=== PATIENT | female | born 1980 | race Caucasian/White ===

== ENCOUNTER 2020-02-29 11:32 | Emergency (ER) | payer MEDICAID ==
[~2020-02-29] VITALS: Ht 165.1 cm; Wt 69.5 kg
[2020-02-29] MEDS ORDERED: HYDROmorphone 2 MG/ML, 1ML ONE ×3 (11:58→15:12)
[2020-02-29] MEDS ORDERED: HYDROmorphone 1 MG/ML, 1ML INJ IM ONE ×2 (12:00→15:30)
[2020-02-29] MEDS ORDERED: METHOCARBAMOL 1,000 MG in DEXTROSE 5% 100 ML IV ONE (12:00)
--- NOTE | 2020-02-29 12:00 | NUR ---
PT TO ROOM 27 PER PEDIS. PT VERY TEARY EYED DUE TO SEVERE PAIN IN LOWER BACK. PT INFORMS MD THAT SHE HAS HAD SURGERY ON HER LOWER SPINE 4 YEARS AGO, AND 4 WEEKS AGO PATIENT COUGHED SO HARD SHE FELT A "POP", AND HAS HAD SEVERE PAIN SINCE. PT HAS BEEN TO THE ED IN [facility], BUT THEY DO NOT HAVE THE ABILITY TO PERFORM AN MRI. PT DID TALK TO A SPINE DOCTOR, WHO RECOMMENDED SHE COME TO THE ED TO HAVE THE MRI. MD PLACES ORDERS. RN INSERTS IV WITHOUT DIFF. AWAITING MEDICATION FROM PHARMACY. IM DILAUDID GIVEN, LAB DRAWN. PT PLACED ON MONITOR, GIVEN WARM BLANKET, AND CALL LIGHT GIVEN WITH INSTRUCTIONS. PT SETTLES AND BEGINS TO PRAISE THE HELP SHE IS RECEIVING AT THIS TIME. PLAN IS TO HAVE AN MRI TO CHECK HER SPINE BUT AFTER THE MUSCLE RELAXER HAS HAD TIME TO WORK SO PATIENT CAN LAY DOWN FOR THE TEST. WILL CONTINUE TO MONITOR.
--- NOTE | 2020-02-29 12:08 | NUR ---
TASK RN NOTE: PT MEDICATED PER EMAR WITH IM DILAUDID. PT TOLERATED WELL. SPO2 MONITOR IN PLACE. PRIMARY RN CHARLENE AT BEDSIDE.
[2020-02-29 12:19] LABS: BASOPHILS # (AUTO) 0.04 x10^3/uL (0-0.1); BASOPHILS % (AUTO) 1 % (0-1); EOSINOPHILS # (AUTO) 0.21 x10^3/uL (0-0.4); EOSINOPHILS % (AUTO) 3 % (1-7); LYMPHOCYTES % (AUTO) 29 % (22-44); MD NO; MEAN CORPUSCULAR HEMOGLOBIN 31.7 pg (27.0-34.8); MEAN CORPUSCULAR HGB CONC 33.4 g/dL (32.4-35.8); MEAN CORPUSCULAR VOLUME 94.9 fL (80-100); MEAN PLATELET VOLUME 8.7 fL (7.4-10.4); MONOCYTES # (AUTO) 0.45 x10^3/uL (0.2-0.8); MONOCYTES % (AUTO) 7 % (2-9); NEUTROPHILS # (AUTO) 4.14 x10^3/uL (1.8-6.8); NEUTROPHILS % (AUTO) 61 % (42-75); PLATELET COUNT 210 x10^3/uL (130-400); RED BLOOD COUNT 4.18 x10^6/uL (3.82-5.3); RED CELL DISTRIBUTION WIDTH 13.7 % (9.6-15.2)
[2020-02-29 12:28] LABS: ANION GAP 5 mmol/L (5-15); CHLORIDE 110 mmol/L (98-107); CREATININE 0.75 mg/dL (0.55-1.02)
--- NOTE | 2020-02-29 12:53 | NUR ---
TASK RN NOTE: PT REPORTS BILATERAL LOWER BACK PAIN IS NOW 7/10, ROBAXAN INFUSING VIA IV PUMP AT PRESCRIBED RATE. ALL MONITORS IN PLACE, PT IS A&O, REPSS EVEN AND UNLABORED, NSR ON RECRUITING SPECIALIST WITH NO ECOTPY NOTED. CALL LIGHT IN REACH, BED LOCKED AND IN LOWEST POSITION.
--- NOTE | 2020-02-29 12:59 | NUR ---
TASK RN: RN RECEIVED CALL FROM CONTACT CENTER ASSOCIATE ASKING IF PT IS READY TO BE TRANSPORTED TO MRI. RN INFORMED CONTACT CENTER ASSOCIATE THAT PT IS CURRENTLY RECEIVING A MEDICATION ADMINISTRATION VIA IV PUMP AND WILL BE READY IN A HALF HOUR.
[2020-02-29 13:20] VITALS: BP 112/63
--- NOTE | 2020-02-29 13:27 | NUR ---
TASK RN: RN INFORMED AUTOMATIC CASTING MACHINE OPERATOR THAT PT IS READY FOR MRI.
--- NOTE | 2020-02-29 13:30 | NUR ---
TASK RN NOTE: ASSESSMENT PERFORMED, PT IS MORE COMFORTABLE AND STATES SHE IS READY FOR MRI. ROBAXAN INFUSION COMPLETE. MRI SCREEN COMPLETED, VSS, ALL MONITORS IN PLACE. PT A&O, RESPS EVEN AND UNLABORED, NSR ON PILER WITH NO ECTOPY, SPO2 MAINTAINING >93% ON ROOM AIR. REPORT GIVEN BACK TO PRIMARY RN CHARLENE.
--- NOTE | 2020-02-29 13:44 | NUR ---
PT IS PREPPED AND READY FOR MRI.
--- NOTE | 2020-02-29 14:03 | NUR ---
Task RN. Pt to MRI.
--- NOTE | 2020-02-29 14:10 | NUR ---
pt in ER RESP unit, per Claudio pt is not a R/O Covid pt. OK to scan in MRI room 2
--- NOTE | 2020-02-29 14:15 | NUR ---
PT TO MRI PER CART. WILL CONTINUE TO MONITOR.
--- NOTE | 2020-02-29 15:14 | NUR ---
BREAK RN: PT MEDICATED FOR 9/10 BACK PAIN PER EMAR.
[2020-02-29] MEDS ORDERED: OXYcodone/APAP 7.5/325MG TABLET PO ONE (17:30)
[2020-02-29] MEDS ORDERED: OXYcodone/APAP 7.5/325MG TABLET ONE (17:56)
--- NOTE | 2020-02-29 18:04 | NUR ---
TASK RN: PT DC HOME IN A STABLE CONDITION. PIV WAS REMOVED WITH TIP INTACT. DC INSTRUCTIONS WERE DISCUSSED WITH PT. PT VERBALIZED UNDERSTANDING. PRESCRIPTION SCRIPT WAS PROVIDED TO PT. PT STATED HAD A COPY OF MRI. PT AMBULATED OUT OF ED WITH A STEADY GAIT.
== END 2020-02-29 18:08 | disposition home or self-care (01) ==
LOC: ED 12:14
DX: S39.012A Strain of muscle, fascia and tendon of lower back, initial encounter (principal); X58.XXXA Exposure to other specified factors, initial encounter; Y93.89 Activity, other specified; Y92.89 Other specified places as the place of occurrence of the external cause; Y99.8 Other external cause status
CPT/HCPCS: 36415; 72148; 80048; 85025; 96365; 96366; 96372; 99285; J1170; J2800

== ENCOUNTER 2020-12-12 16:24 | Emergency (ER) | payer MEDICAID ==
[~2020-12-12] VITALS: Ht 165.1 cm; Wt 65.9 kg
--- NOTE | 2020-12-12 16:59 | NUR ---
NO ANSWER IN LOBBY
--- NOTE | 2020-12-12 17:24 | NUR ---
BREAK RN: PT TO ROOM FROM LOBBY VIA WHEELCHAIR AT THIS TIME.
[2020-12-12] MEDS ORDERED: GABA-827 PO (17:31)
--- NOTE | 2020-12-12 17:31 | NUR ---
BREAK RN: PT ABLE TO TRANSFER FROM WD TO BED INDEPENDENTLY BUT WITH INCREASED C/O PAIN SHOOTING DOWN BACK OF CALVES AND BOTTOM OF FEET AND LBP. VSS, CALL LIGHT W/I REACH.
[2020-12-12] MEDS ORDERED: DIAZEPAM 5 MG TABLET ONE (18:38)
[2020-12-12] MEDS ORDERED: KETOROLAC 30 MG/1 ML ONE (18:39)
--- NOTE | 2020-12-12 18:46 | NUR ---
MEDICATED PT PER MAR.
[2020-12-12] MEDS ORDERED: ONDANSETRON ODT 4 MG ONE (18:55)
[2020-12-12] MEDS ORDERED: DIAZEPAM 5 MG TABLET PO ONE (19:00)
[2020-12-12] MEDS ORDERED: KETOROLAC 30 MG/1 ML IM ONE (19:00)
[2020-12-12] MEDS ORDERED: ONDANSETRON ODT 4 MG PO ONE (19:00)
[2020-12-12 19:32] VITALS: BP 123/70
[2020-12-12] MEDS ORDERED: HYDROcodone/APAP 10/325 MG TABLET ONE (19:38)
--- NOTE | 2020-12-12 19:42 | NUR ---
PT C/O NO PAIN RELIEF, PT MEDICATED PER MD ORDER.
[2020-12-12] MEDS ORDERED: HYDROcodone/APAP 10/325 MG TABLET PO ONE (20:00)
== END 2020-12-12 20:22 | disposition home or self-care (01) ==
LOC: ED 19:46
DX: S39.012A Strain of muscle, fascia and tendon of lower back, initial encounter (principal); M51.36 Other intervertebral disc degeneration, lumbar region; W01.0XXA Fall on same level from slipping, tripping and stumbling without subsequent striking against object, initial encounter; Y93.89 Activity, other specified; Y92.89 Other specified places as the place of occurrence of the external cause; Y99.8 Other external cause status
CPT/HCPCS: 72110; 96372; 99284; J1885; Q0162

== ENCOUNTER 2020-12-13 10:50 | Emergency (ER) | payer MEDICAID ==
[~2020-12-13] VITALS: Ht 165.1 cm; Wt 66.0 kg
[~2020-12-13 10:50] MED LIST: GABA-827 PO
--- NOTE | 2020-12-13 11:03 | NUR ---
PT BIBA FROM [facility] IN [place], C/O BILATERAL LOWER BACK PAIN RADIATING DOWN BILATERAL LEGS WITH PINS AND NEEDLES SENSATION TO BILATERAL LEGS/FEET. PT DENIES BOWEL/BLADDER DYSFUNCTION. PT HAD MECHANICAL GLF ONE WEEK AGO, DENIES HEAD INJURY/NECK INJURY AT THAT TIME. CMS INTACT BILATERALLY. BP AND SPO2 MONITORS IN PLACE. CALL LIGHT IN REACH. AWAITING MD AND ORDERS.
[2020-12-13] MEDS ORDERED: CYCLOBENZAPRINE 10 MG TABLET PO ONE (11:30)
[2020-12-13] MEDS ORDERED: KETOROLAC 30 MG/1 ML IVPush ONE (11:30)
[2020-12-13] MEDS ORDERED: MORPHINE SULFATE 4 MG/ML, 1ML IVPush PRN (11:30)
[2020-12-13 11:36] LABS: BASOPHILS % (AUTO) 1 % (0-1); EOSINOPHILS % (AUTO) 3 % (1-7); LYMPHOCYTES % (AUTO) 31 % (22-44); MEAN CORPUSCULAR HEMOGLOBIN 31.9 pg (27.0-34.8); MEAN CORPUSCULAR HGB CONC 34.3 g/dL (32.4-35.8); MEAN PLATELET VOLUME 8.3 fL (7.4-10.4); MONOCYTES % (AUTO) 6 % (2-9); NEUTROPHILS % (AUTO) 58 % (42-75); PLATELET COUNT 191 x10^3/uL (130-400); RED BLOOD COUNT 4.46 x10^6/uL (3.82-5.3); RED CELL DISTRIBUTION WIDTH 13.3 % (9.6-15.2)
[2020-12-13 11:37] LABS: MD NO
[2020-12-13 11:42] LABS: ALBUMIN 3.3 g/dL (3.4-5.0); ANION GAP 4 mmol/L (5-15); CALCIUM 8.4 mg/dL (8.5-10.1); CHLORIDE 112 mmol/L (98-107); CREATININE 0.76 mg/dL (0.55-1.02)
[2020-12-13] MEDS ORDERED: MORPHINE SULFATE 4 MG/ML, 1ML ONE (11:52)
[2020-12-13] MEDS ORDERED: CYCLOBENZAPRINE 10 MG TABLET ONE (11:52)
[2020-12-13] MEDS ORDERED: KETOROLAC 30 MG/1 ML ONE (11:52)
--- NOTE | 2020-12-13 12:20 | NUR ---
PIV placed, pt medicated per emar, tolerated well. oxygen placed at 2L/min via NC for MRI, spo2 94% on room air s/p morphine. pt to MRI at this time.
[2020-12-13] MEDS ORDERED: GADOTERATE 7.5 MMOL/15 ML VIAL ONE (12:51)
[2020-12-13 13:26] LABS: MICROSCOPIC NOT IND
--- NOTE | 2020-12-13 13:30 | NUR ---
PT BACK FROM MRI, A&O, RESPS EVEN AND UNLABORED, REPORTS BILATERAL LEG PAIN 8/. AWAITING MRI READ AND DISPO.
--- NOTE | 2020-12-13 14:28 | NUR ---
pt requests repeat morphine dose, MD [place] declines when notified. pt to be dc'd.
[2020-12-13 14:30] VITALS: BP 110/77
--- NOTE | 2020-12-13 14:45 | NUR ---
PT GIVEN DC INSTRUCTIONS AND SCRIPT, EDUCATED REGARDING RX FOR NAPROXEN AND ROBAXAN. PIV DC'D WITH TIP INTACT. PT A&O, RESPS EVEN AND UNLABORED, AMBULATORY WITH STEADY GAIT, INSTRUCTED NOT TO DRIVE TODAY D/T MEDS GIVEN. PT GIVEN WC ESCORT TO DISCHARGE, PT CALLING [facility] FOR DRIVE HOME. NADN AT DC, ALL QUESTIONS ANSWERED.
== END 2020-12-13 15:14 | disposition home or self-care (01) ==
LOC: ED 11:35
DX: M54.5 Low back pain (principal); R53.1 Weakness; F17.200 Nicotine dependence, unspecified, uncomplicated
CPT/HCPCS: 36415; 72158; 80048; 81003; 82040; 85025; 96374; 96375; 99285; A9575; J1885; J2270